=== PATIENT | female | born 1950 | race Caucasian/White ===

== ENCOUNTER → 2017-10-27 13:15 | Outpatient (CLI) | payer OTHER, SELFPAY | PROVIDERS: Family Provider Nurse Practitioner Family; PCP Nurse Practitioner Family; Visit Provider Family Medicine | DX: M85.88 Other specified disorders of bone density and structure, other site (principal) | CPT/HCPCS: 77080 ==

== ENCOUNTER → 2018-11-26 15:24 | Outpatient (CLI) | payer MEDICARE, OTHER, SELFPAY ==
[2018-11-26 16:35] LABS: Alanine Aminotransferase 33 IU/L (9-52); Albumin 4.3 g/dL (3.5-5.0); Albumin Globulin Ratio 1.8 (1.0-2.8); Alkaline Phosphatase 65 U/L (38-126); Aspartate Aminotransferase 25 IU/L (14-36); Bilirubin Total 0.5 mg/dL (0.2-1.3); Blood Urea Nitrogen 18 mg/dL (7-17); Carbon Dioxide 28 mmol/L (22-32); Chloride 100 mmol/L (98-107); Estimated Glomerular Filt Rate > 60.0 mL/min (>60); Globulin 2.4 g/dL (1.7-4.1); Glucose 87 mg/dL (80-110); HEMOLYSIS < 15 (0-50); Potassium 3.7 mmol/L (3.4-5.1); Sodium 138 mmol/L (137-145); Total Protein 6.7 g/dL (6.3-8.2)
[2018-11-26 16:51] LABS: Vitamin D 25 Hydroxy (D3) 39.5 ng/mL (30.0-100.0)
== END ==
PROVIDERS: Family Provider Internal Medicine; PCP Internal Medicine; Visit Provider Family Medicine
DX: M81.0 Age-related osteoporosis without current pathological fracture (principal)
CPT/HCPCS: 36415; 80053; 82306

== ENCOUNTER → 2019-02-17 14:13 | Outpatient (CLI) | payer MEDICARE, OTHER, SELFPAY | PROVIDERS: Family Provider Internal Medicine; PCP Internal Medicine; Visit Provider Family Medicine | DX: M85.88 Other specified disorders of bone density and structure, other site (principal); Z78.0 Asymptomatic menopausal state; Z82.62 Family history of osteoporosis; Z87.891 Personal history of nicotine dependence | CPT/HCPCS: 77080 ==

== ENCOUNTER → 2019-07-07 10:14 | Outpatient (CLI) | payer MEDICARE, OTHER, SELFPAY ==
[2019-07-07 11:17] LABS: BUN Creatinine Ratio 23.3 (6-22); Blood Urea Nitrogen 21 mg/dL (7-17); Calcium 9.6 mg/dL (8.4-10.2); Carbon Dioxide 27 mmol/L (22-32); Chloride 104 mmol/L (98-107); Estimated Glomerular Filt Rate > 60.0 mL/min (>60); Glucose 105 mg/dL (80-110); HEMOLYSIS < 15 (0-50); Potassium 3.9 mmol/L (3.4-5.1); Sodium 139 mmol/L (137-145)
[2019-07-07 11:34] LABS: Vitamin D 25 Hydroxy (D3) 57.9 ng/mL (30.0-100.0)
== END ==
PROVIDERS: Family Provider Internal Medicine; PCP Internal Medicine; Visit Provider Family Medicine
DX: M81.0 Age-related osteoporosis without current pathological fracture (principal)
CPT/HCPCS: 36415; 80048; 82306

== ENCOUNTER → 2019-12-02 09:57 | Outpatient (CLI) | payer MEDICARE, OTHER, SELFPAY ==
[2019-12-02 11:58] LABS: Cholesterol 131 mg/dL (140-199); HDL Cholesterol 45 mg/dL (40-60); LDL Cholesterol Calculated 65 mg/dL (<100); Triglycerides 105 mg/dL (35-150)
== END ==
PROVIDERS: Family Provider Internal Medicine; PCP Internal Medicine; Referring Provider Internal Medicine; Visit Provider Internal Medicine
DX: E78.5 Hyperlipidemia, unspecified (principal)
CPT/HCPCS: 36415; 80061

== ENCOUNTER → 2020-03-08 12:47 | Outpatient (CLI) | payer MEDICARE, OTHER, SELFPAY ==
--- NOTE | 2020-03-08 | DI.RAD.S_ITS ---
PROCEDURE: XR DEXA AXIAL SKELETON INDICATIONS: Age-related osteoporosis COMPARISON: [facility], CR, XR DEXA AXIAL SKELETON, 02/17/2019, 14:48. FINDINGS: This blank DEXA report has been sent in error by the PACS system. The correct and complete report will be forthcoming in 1-2 days. Thank you for your patience and understanding. Dictated by: Tisha Norris MD, PhD on 03/08/2020 at 16:20 Approved by: Tisha Norris MD, PhD on 03/08/2020 at 16:20
== END ==
PROVIDERS: Family Provider Internal Medicine; PCP Student in an Organized Health Care Education/Training Program; Referring Provider Student in an Organized Health Care Education/Training Program; Visit Provider Family Medicine
DX: M85.88 Other specified disorders of bone density and structure, other site (principal); Z78.0 Asymptomatic menopausal state; Z82.62 Family history of osteoporosis; Z87.891 Personal history of nicotine dependence
CPT/HCPCS: 77080

== ENCOUNTER → 2020-03-21 10:35 | Outpatient (CLI) | payer MEDICARE, OTHER, SELFPAY ==
[2020-03-21 12:46] LABS: Cholesterol 223 mg/dL (140-199); HDL Cholesterol 61 mg/dL (40-60); LDL Cholesterol Calculated 127 mg/dL (<100); Triglycerides 175 mg/dL (35-150)
[2020-03-21 14:00] LABS: Free T4, Direct Thyroxine 1.23 ng/dL (0.78-2.19)
== END ==
PROVIDERS: Family Provider Internal Medicine; PCP Student in an Organized Health Care Education/Training Program; Referring Provider Student in an Organized Health Care Education/Training Program; Visit Provider Student in an Organized Health Care Education/Training Program
DX: E03.9 Hypothyroidism, unspecified (principal); E78.2 Mixed hyperlipidemia
CPT/HCPCS: 36415; 80061; 84439; 84443

== ENCOUNTER → 2020-04-29 15:05 | Outpatient (CLI) | payer MEDICARE, OTHER, SELFPAY ==
[2020-04-29 16:44] LABS: COVID19 -Nasal RAPID Negative (Negative)
== END ==
PROVIDERS: Family Provider Internal Medicine; PCP Student in an Organized Health Care Education/Training Program; Visit Provider Physician Assistant
DX: Z11.59 Encounter for screening for other viral diseases (principal)
CPT/HCPCS: 87635

== ENCOUNTER 2020-05-02 07:01 | Day surgery (SDC) | payer MEDICARE, OTHER, SELFPAY ==
[2020-05-02 07:20] VITALS: BP 108/70; PULSE 62; RESP 14; TEMP 36.6; O2SAT 97; BMI 24.9
[2020-05-02] MEDS: PROPARACAINE 0.5% OPHTH SOL 2 DROPS EYE-OP (07:33)
[2020-05-02] MEDS: CATARACT EYE COMPOUND (10 DROPS/SYRINGE) 3 DROPS EYE-OP (07:40)
--- NOTE | 2020-05-02 08:29 | P.OP_ITS ---
Operative Date/Time/Diagnoses Pre-op diagnosis: Nuclear cataract right eye Procedure & Clinicians Procedure: Cataract Surgery Same procedure as scheduled: Yes Surgeon: Julien Ramirez Anesthesia Type: MAC +/- and Sedation Operative Notes Procedure in detail: Patient brought to the operating suite. Tetracaine drops placed in the right eye. Marking instrument was used to lyndsey the vertical and horizontal meridians. Patient was prepped and draped in sterile manner. Wire lid speculum was placed in the eye. Marking instrument was used to lyndsey the 90 degree meridian. Betadine drops were placed on the eye. This was irrigated. Lidocaine jelly was placed on the eye. A paracentesis port was created with a side-port blade. 0.1 mL 1% preservative free lidocaine was injected into the anterior chamber. The anterior chamber was deepened with viscoelastic. 2.6 mm keratome was used to create a temporal clear corneal incision. Cystotome and U trata forceps were used to create continuous tear capsulorrhexis. Balanced salt solution was used to hydro dissect the nucleus. The phacoemulsification handpiece was inserted and the nucleus was removed using the stop and chop technique. The irrigation aspiration handpiece was inserted and the remaining cortex was removed. Anterior chamber was deepened with viscoelastic. An Arriaza [id number] intraocular lens with a power of 23.0 was injected into the capsular bag. Irrigation aspiration handpiece was inserted and the remaining viscoelastic was removed. The lens was rotated to the 90 degree meridian. Incision was hydrated with balanced salt solution and found to be leak free with pressure with Weck-Karla sponges. 0.1 mL Vigamox injected anterior chamber. 0.3 mL Kenalog 10 mg was injected subconjunctivally. Lid speculum was removed. The patient left the operating room in excellent condition. Complications: none Post-operative Condition: stable Disposition: same day surgery
--- NOTE | 2020-05-02 08:29 | PM.PREOP ---
Pre-operative Note Interval Note History & Physical reviewed/Exam performed by Physician: Yes Changes to H&P: No
[2020-05-02] MEDS: TRIAMCINOLONE 50 MG/5 ML VIAL INJ (08:49)
[2020-05-02] MEDS: MOXIFLOXACIN INJ 5 MG/ML VIAL EYE-OP (08:49)
[2020-05-02] MEDS: CHONDROIDTIN/SOD HYALURONATE 1.05 ML SYRINGE INTRAOCULA (08:49)
[2020-05-02] MEDS: LIDOCAINE JELLY 2% 5 ML 1 APPLIC TOP (08:49)
[2020-05-02] MEDS: PHENYLEPHRINE/LIDOCAINE VIAL (OR) 0.2 ML EYE-OP (08:49)
[2020-05-02] MEDS: BALANCED SALT IRRIG SOLN NO.2 500 ML, EPINEPHrine 1 MG IRR (08:50)
[2020-05-02] MEDS: TETRACAINE 0.5% OPHTH DROPS 4 ML 2 DROPS EYE-OP (08:50)
[2020-05-02 09:06] VITALS: BP 109/68; PULSE 57; RESP 16; TEMP 36.1; O2SAT 100
== END 2020-05-02 09:11 | disposition home or self-care (01) ==
PROVIDERS: Family Provider Internal Medicine; PCP Student in an Organized Health Care Education/Training Program; Referring Provider Student in an Organized Health Care Education/Training Program; Visit Provider Ophthalmology
PROC: (CPT 66984; principal; 2020-05-02 08:45)
DX: H25.11 Age-related nuclear cataract, right eye (principal); I10 Essential (primary) hypertension
CPT/HCPCS: 66984; J0171; J2250; J3301; V2787

== ENCOUNTER → 2020-05-13 14:11 | Outpatient (CLI) | payer MEDICARE, OTHER, SELFPAY ==
[2020-05-13 16:41] LABS: COVID19 -Nasal RAPID Negative (Negative)
== END ==
PROVIDERS: Family Provider Internal Medicine; PCP Student in an Organized Health Care Education/Training Program; Visit Provider Nurse Practitioner
DX: Z11.59 Encounter for screening for other viral diseases (principal)
CPT/HCPCS: 87635

== ENCOUNTER 2020-05-16 07:03 | Day surgery (SDC) | payer MEDICARE, OTHER, SELFPAY ==
[2020-05-16] MEDS: PROPARACAINE 0.5% OPHTH SOL 2 DROPS EYE-OP (07:21)
[2020-05-16] MEDS: CATARACT EYE COMPOUND (10 DROPS/SYRINGE) 3 DROPS EYE-OP (07:24)
[2020-05-16 07:25] VITALS: BP 135/69; PULSE 61; RESP 14; TEMP 36.8; O2SAT 98
[2020-05-16 07:31] VITALS: BMI 24.9
--- NOTE | 2020-05-16 07:53 | PM.PREOP ---
Pre-operative Note Interval Note History & Physical reviewed/Exam performed by Physician: Yes Changes to H&P: No
--- NOTE | 2020-05-16 07:54 | P.OP_ITS ---
Operative Date/Time/Diagnoses Pre-op diagnosis: Nuclear Cataract Left eye Post-op diagnosis: same Procedure & Clinicians Same procedure as scheduled: Yes Surgeon: Julien Ramirez Anesthesia Type: MAC +/- and Sedation Operative Notes Procedure in detail: Patient brought to the operating suite. Tetracaine drops placed in the left eye. Marking instrument was used to lyndsey the vertical and horizontal meridians. Patient was prepped and draped in sterile manner. Wire lid speculum was placed in the eye. Marking instrument was used to lyndsey the 90 degree meridian. Betadine drops were placed on the eye. This was irrigated. Lidocaine jelly was placed on the eye. A paracentesis port was created with a side-port blade. 0.1 mL 1% preservative free lidocaine was injected into the anterior chamber. The anterior chamber was deepened with viscoelastic. 2.6 mm keratome was used to create a temporal clear corneal incision. Cystotome and Utrata forceps were used to create continuous tear capsulorrhexis. Balanced salt solution was used to hydro dissect the nucleus. The phacoemulsification handpiece was inserted and the nucleus was removed using the stop and chop ranjeet hnique. The irrigation aspiration handpiece was inserted and the remaining cortex was removed. Anterior chamber was deepened with viscoelastic. An Arriaza [id number] intraocular lens with a power of 22.5 was injected into the capsular bag. Irrigation aspiration handpiece was inserted and the remaining viscoelastic was removed. The lens was rotated to the 90 degree meridian. Incision was hydrated with balanced salt solution and found to be leak free with pressure with Weck- Karla sponges. 0.1 mL Vigamox injected anterior chamber. 0.3 mL Kenalog 10 mg was injected subconjunctivally. Lid speculum was removed. The patient left the operating room in excellent condition. Complications: none Post-operative Condition: stable Disposition: same day surgery
[2020-05-16] MEDS: MOXIFLOXACIN INJ 5 MG/ML VIAL EYE-OP (08:14)
[2020-05-16] MEDS: PHENYLEPHRINE/LIDOCAINE VIAL (OR) 0.2 ML EYE-OP (08:14)
[2020-05-16] MEDS: BALANCED SALT IRRIG SOLN NO.2 500 ML, EPINEPHrine 1 MG IRR (08:15)
[2020-05-16] MEDS: TRIAMCINOLONE 50 MG/5 ML VIAL INJ (08:15)
[2020-05-16] MEDS: TETRACAINE 0.5% OPHTH DROPS 4 ML 2 DROPS EYE-OP (08:15)
[2020-05-16] MEDS: LIDOCAINE JELLY 2% 5 ML 1 APPLIC TOP (08:15)
[2020-05-16] MEDS: CHONDROIDTIN/SOD HYALURONATE 1.05 ML SYRINGE INTRAOCULA (08:15)
[2020-05-16 08:28] VITALS: BP 138/65; PULSE 61; RESP 12; TEMP 36.2; O2SAT 99
== END 2020-05-16 08:40 | disposition home or self-care (01) ==
PROVIDERS: Family Provider Internal Medicine; PCP Student in an Organized Health Care Education/Training Program; Referring Provider Student in an Organized Health Care Education/Training Program; Visit Provider Ophthalmology
PROC: (CPT 66984; principal; 2020-05-16 08:15)
DX: H25.12 Age-related nuclear cataract, left eye (principal); I10 Essential (primary) hypertension
CPT/HCPCS: 66984; J0171; J2250; J3301; V2787

== ENCOUNTER → 2020-06-23 12:38 | Outpatient (CLI) | payer MEDICARE, OTHER, SELFPAY ==
[2020-06-23 14:26] LABS: BUN Creatinine Ratio 15.6 (6-22); Blood Urea Nitrogen 14 mg/dL (7-17); Estimated Glomerular Filt Rate > 60.0 mL/min (>60)
== END ==
PROVIDERS: PCP Student in an Organized Health Care Education/Training Program; Referring Provider Family Medicine; Visit Provider Family Medicine
DX: M81.0 Age-related osteoporosis without current pathological fracture (principal); Z51.81 Encounter for therapeutic drug level monitoring; Z79.83 Long term (current) use of bisphosphonates
CPT/HCPCS: 36415; 82565; 84520

== ENCOUNTER → 2020-07-10 08:31 | Outpatient (CLI) | payer MEDICARE, OTHER, SELFPAY ==
[2020-07-10 10:10] LABS: BUN Creatinine Ratio 19.5 (6-22); Blood Urea Nitrogen 15 mg/dL (7-17); Calcium 9.1 mg/dL (8.4-10.2); Carbon Dioxide 33 mmol/L (22-32); Chloride 102 mmol/L (98-107); Estimated Glomerular Filt Rate > 60.0 mL/min (>60); Glucose 108 mg/dL (80-110); HEMOLYSIS < 15 (0-50); Sodium 138 mmol/L (137-145)
[2020-07-10 11:00] LABS: Vitamin D 25 Hydroxy (D3) 58.4 ng/mL (30.0-100.0)
== END ==
PROVIDERS: PCP Student in an Organized Health Care Education/Training Program; Referring Provider Family Medicine; Visit Provider Family Medicine
DX: Z51.81 Encounter for therapeutic drug level monitoring (principal); M81.0 Age-related osteoporosis without current pathological fracture; Z79.83 Long term (current) use of bisphosphonates
CPT/HCPCS: 36415; 80048; 82306

== ENCOUNTER → 2020-10-02 14:06 | Outpatient (CLI) | payer MEDICARE, OTHER, SELFPAY ==
[2020-10-02 16:05] LABS: COVID19 -Nasal RAPID Negative (Negative)
== END ==
PROVIDERS: PCP Student in an Organized Health Care Education/Training Program; Visit Provider Student in an Organized Health Care Education/Training Program
DX: Z20.822 Contact with and (suspected) exposure to COVID-19 (principal)
CPT/HCPCS: 87635; C9803

== ENCOUNTER → 2020-10-03 10:49 | Outpatient (CLI) | payer MEDICARE, OTHER, SELFPAY ==
--- NOTE | 2020-10-04 14:49 | DI.NM.S_ITS ---
DATE OF SERVICE: October 03, 2020. PROCEDURE PERFORMED: Exercise treadmill stress and rest myocardial perfusion imaging with gating to assess ejection fraction and regional wall motion. ORDERING PROVIDER: Sarah Clemons MD INDICATIONS: The patient is a 69-year-old hypertensive, hyperlipidemic female with atypical chest discomfort. EXERCISE TREADMILL TESTING: The patient was able to exercise for 7 minutes 15 seconds on a standard Kirill protocol suggesting good exercise capacity with an LATONYA of -18%, achieving 10.1 METS. She had a normal heart rate and blood pressure response to exercise, achieving a maximum heart rate of 136 BPM (89% of her predicted maximum). She had no chest discomfort or other anginal symptoms. Her resting ECG shows sinus rhythm with normal ST segments, and there are no significant ST-segment shifts with exercise. She had rare isolated PVCs, but no complex ectopy. At 6 minutes 2 seconds of exercise at a heart rate of 128 BPM, 27.3 millicuries of technetium-99m Myoview was injected and she was imaged 15 minutes later using a gated SPECT acquisition protocol. She returned the following day and was reinjected with an additional 24.5 millicuries of technetium-99m Myoview and was imaged 30 minutes later, again using a gated SPECT acquisition protocol. FINDINGS: RAW DATA: There is good myocardial tracer uptake. Lung/heart ratio is normal at 0.30 with a normal TID ratio of 0.74. QUANTITATED GATED SPECT: Post-stress ejection fraction is estimated at 87% without any focal wall motion abnormalities and is likely an overestimate because of relatively small left ventricular volumes. Resting ejection fraction is estimated at 68% and appears unchanged from the stress images. Resting end-diastolic volume is normal at 77 mL. MYOCARDIAL PERFUSION IMAGING: Post-stress supine images show a fairly normal myocardial perfusion pattern with a subtle defect anteriorly that resolves on the prone images, consistent with breast attenuation artifact. The prone images show a homogeneous normal perfusion pattern. The resting images show an identical perfusion pattern without any areas of improvement. CONCLUSION: 1. Normal myocardial perfusion study. 2. Subtle, fixed anterior defect that resolves on prone imaging, consistent with breast attenuation artifact. There is no evidence for significant myocardial ischemia or previous myocardial infarction. 3. Normal left ventricular systolic function without any focal wall motion abnormalities. 4. Good exercise capacity without angina or ECG evidence of ischemia. Gretchen Block - RS/fn/cs doc#: [id number]/job#: [id number] dd: 10/04/2020 12:39:00 dt: 10/04/2020 13:52:00 DICTATING MD/COPIES TO: Andrei Robledo MD; Sarah Clemons MD COPIES MNE: ASHLEY;
== END ==
PROVIDERS: PCP Student in an Organized Health Care Education/Training Program; Referring Provider Student in an Organized Health Care Education/Training Program; Visit Provider Student in an Organized Health Care Education/Training Program
DX: R07.89 Other chest pain (principal); I10 Essential (primary) hypertension; E78.5 Hyperlipidemia, unspecified
CPT/HCPCS: 78452; 93016; 93017; 93018; A9502

== ENCOUNTER → 2021-06-01 14:24 | Outpatient (CLI) | payer MEDICARE, OTHER, SELFPAY | PROVIDERS: PCP Student in an Organized Health Care Education/Training Program; Referring Provider Family Medicine; Visit Provider Family Medicine | DX: Z78.0 Asymptomatic menopausal state (principal); Z79.83 Long term (current) use of bisphosphonates; M85.88 Other specified disorders of bone density and structure, other site; Z51.81 Encounter for therapeutic drug level monitoring; Z87.891 Personal history of nicotine dependence; Z82.62 Family history of osteoporosis | CPT/HCPCS: 77080 ==

== ENCOUNTER → 2021-10-29 15:01 | Outpatient (CLI) | payer MEDICARE, OTHER, SELFPAY ==
--- NOTE | 2021-10-29 | DI.MG.S_ITS ---
BILATERAL DIGITAL SCREENING MAMMOGRAM 3D/2D WITH CAD: 10/29/2021 CLINICAL: Routine screening. Family history of breast cancer. Comparison is made to exams dated: 05/15/2016 mammogram - [facility], 04/25/2015 mammogram, and 02/23/2014 mammogram - [facility]. The tissue of both breasts is heterogeneously dense. This may lower the sensitivity of mammography. Current study was also evaluated with a Computer Aided Detection (CAD) system. No significant masses, calcifications, or other findings are seen in either breast. There has been no significant interval change. IMPRESSION: NEGATIVE There is no mammographic evidence of malignancy. A 1 year screening mammogram is recommended. This exam was interpreted at Station ID: [id number]. NOTE: For mammograms, a report in lay terms will be sent to the patient. Approximately 15% of breast malignancies will not be visualized mammographically. In the management of a palpable breast mass, a negative mammogram must not discourage biopsy of a clinically suspicious lesion. Electronically Signed By: Albino saleh/lona:10/29/2021 16:15:28 letter sent: Normal Exam ACR BI-RADS Category 1: Negative 3341F
== END ==
PROVIDERS: PCP Student in an Organized Health Care Education/Training Program; Referring Provider Student in an Organized Health Care Education/Training Program; Visit Provider Student in an Organized Health Care Education/Training Program
DX: Z12.31 Encounter for screening mammogram for malignant neoplasm of breast (principal); Z80.3 Family history of malignant neoplasm of breast
CPT/HCPCS: 77063; 77067

== ENCOUNTER → 2022-06-19 11:52 | Outpatient (CLI) | payer MEDICARE, OTHER, SELFPAY | PROVIDERS: PCP Internal Medicine; Referring Provider Family Medicine; Visit Provider Family Medicine | DX: M81.0 Age-related osteoporosis without current pathological fracture (principal); Z51.81 Encounter for therapeutic drug level monitoring; Z79.83 Long term (current) use of bisphosphonates; Z78.0 Asymptomatic menopausal state; Z92.23 Personal history of estrogen therapy | CPT/HCPCS: 77080 ==

== ENCOUNTER → 2022-11-05 12:53 | Outpatient (CLI) | payer MEDICARE, OTHER, SELFPAY ==
--- NOTE | 2022-11-05 | DI.MG.S_ITS ---
BILATERAL DIGITAL SCREENING MAMMOGRAM 3D/2D WITH CAD: 11/05/2022 CLINICAL: Routine screening. Family history of breast cancer. Comparison is made to exams dated: 10/29/2021 mammogram, 05/15/2016 mammogram - [facility], and 04/25/2015 mammogram - [facility]. Both breasts are heterogeneously dense, which may obscure small masses (category c / 51-75% glandular tissue). Current study was also evaluated with a Computer Aided Detection (CAD) system. There are benign calcifications in both breasts. No significant masses, calcifications, or other findings are seen in either breast. There has been no significant interval change. IMPRESSION: BENIGN There is no mammographic evidence of malignancy. A 1 year screening mammogram is recommended. Based on the Tyrer Cuzick model (a risk assessment model) the patient's lifetime risk is 11.0% and her 10 year risk is 6.6%. According to the ACR, ACS, and NCCN guidelines, an annual breast MRI exam along with mammogram is recommended if the patient's lifetime risk is 20% or greater. This exam was interpreted at Station ID: [id number]. NOTE: For mammograms, a report in lay terms will be sent to the patient. Approximately 15% of breast malignancies will not be visualized mammographically. In the management of a palpable breast mass, a negative mammogram must not discourage biopsy of a clinically suspicious lesion. Electronically Signed By: Ilan musa/lona:11/05/2022 15:33:12 letter sent: Normal Exam ACR BI-RADS Category 2: Benign Finding(s) 3342F
== END ==
PROVIDERS: PCP Internal Medicine; Referring Provider Internal Medicine; Visit Provider Internal Medicine
DX: Z12.31 Encounter for screening mammogram for malignant neoplasm of breast (principal); Z80.3 Family history of malignant neoplasm of breast
CPT/HCPCS: 77063; 77067

== ENCOUNTER → 2023-08-27 | Outpatient (CLI) | payer MEDICARE, OTHER, SELFPAY ==
--- NOTE | 2023-08-27 10:47 | DI.RAD.S_ITS ---
Bone Density Report Name: CAROLA AMADO Age: 72 Sex: Female Ethnicity: White Date of : 1950 Indication: osteopenia; monitoring treatment; prior fracture; Referring Provider: TREY LAYTON Study: Bone densitometry was performed. Exam Date: August 27, 2023 Accession number: [id number] Bone Density: Region BMD T-score Z-score Classification AP Spine(L1-L4) 0.857 -1.7 0.4 Osteopenia Femoral Neck (Left) 0.744 -0.9 0.9 Normal Total Hip (Left) 0.933 -0.1 1.5 Normal Femoral Neck (Right) 0.713 -1.2 0.6 Osteopenia Total Hip (Right) 0.873 -0.6 1.0 Normal Total Hip Mean 0.903 -0.4 1.3 Normal World Health Organization criteria for BMD impression classify patients as: Normal (T-score at or above -1.0), Osteopenia (T-score between -1.0 and -2.5), or Osteoporosis (T-score at or below -2.5). 10-year Fracture Risk: FRAX not reported because: Prior hip or vertebral fracture Treated for osteoporosis Previous Exams: -- Region Exam Age BMD T-score BMD Change BMD Change Date g/cm2 vs Baseline vs Previous -- AP Spine (L1-L4) 08/27/2023 72 0.857 -1.7 0.098 (12.9%)# 0.013 (1.6%) 06/19/2022 71 0.843 -1.9 0.085 (11.1%)# -0.030 (-3.4%)# 06/01/2021 70 0.873 -1.6 0.114 (15.1%)* 0.060 (7.4%)* 03/08/2020 69 0.813 -2.1 0.054 (7.2%)* -0.047 (-5.5%)* 02/17/2019 68 0.860 -1.7 0.102 (13.4%)* 0.045 (5.5%)* 10/27/2017 66 0.816 -2.1 0.057 (7.5%)* 0.057 (7.5%)* 03/15/2016 65 0.759 -2.6 Total Hip(Left) 08/27/2023 72 0.933 -0.1 0.028 (3.1%)# -0.019 (-2.0%) 06/19/2022 71 0.952 0.1 0.047 (5.2%)# 0.031 (3.3%)# 06/01/2021 70 0.921 -0.2 0.017 (1.8%) -0.005 (-0.6%) 03/08/2020 69 0.927 -0.1 0.022 (2.4%) 0.005 (0.5%) 02/17/2019 68 0.922 -0.2 0.017 (1.9%) 0.010 (1.1%) 10/27/2017 66 0.912 -0.2 0.007 (0.8%) 0.007 (0.8%) 03/15/2016 65 0.905 -0.3 Total Hip(Right) 08/27/2023 72 0.873 -0.6 0.023 (2.7%)# -0.019 (-2.1%) 06/19/2022 71 0.892 -0.4 0.041 (4.9%)# -0.021 (-2.3%)# 06/01/2021 70 0.913 -0.2 0.063 (7.4%)* 0.025 (2.8%) 03/08/2020 69 0.888 -0.4 0.038 (4.4%)* -0.014 (-1.5%) 02/17/2019 68 0.902 -0.3 0.051 (6.0%)* 0.018 (2.0%) 10/27/2017 66 0.884 -0.5 0.033 (3.9%)* 0.033 (3.9%)* 03/15/2016 65 0.850 -0.8 -- *Denotes significance at 95% confidence level, LSC for AP Spine = 0.022 g/cm2, LSC for Total Hip = 0.027 g/cm2 # Denotes dissimilar scan types or analysis methods Impression: The patient has low bone mass, based on the Total Spine T-score. The patient has risk factors, including: previous fracture. No significant bone loss was observed. Discussion: PATIENT UNDER TREATMENT WITH NO SIGNIFICANT BMD LOSS SINCE LAST EXAM. In an untreated patient, BMD typically declines with age. A lack of decline or gain is usually a sign that treatment is efficacious and fracture risk is reduced. It is important to ask patients whether they are taking their medications and to encourage continued and appropriate compliance with their osteoporosis therapies to reduce fracture risk. It is also important to review their risk factors and encourage appropriate calcium and vitamin D intakes, exercise, fall prevention and other lifestyle measures. Follow-Up: Consider a repeat BMD and Vertebral Fracture Assessment (VFA) exam in 2 years or sooner if medically necessary, to reassess this patient's status. Reported by: FRANCHESKA ROSARIO MD on 08/27/2023 11:18:00 AM.
== END ==
LOC: RAD 10:46
PROVIDERS: PCP Internal Medicine; Referring Provider Family Medicine; Visit Provider Family Medicine
DX: M81.0 Age-related osteoporosis without current pathological fracture (principal); Z78.0 Asymptomatic menopausal state; Z79.83 Long term (current) use of bisphosphonates; Z51.81 Encounter for therapeutic drug level monitoring; Z87.311 Personal history of (healed) other pathological fracture
CPT/HCPCS: 77080

== ENCOUNTER → 2023-11-06 14:55 | Outpatient (CLI) | payer MEDICARE, OTHER, SELFPAY ==
--- NOTE | 2023-11-06 14:57 | DI.ECHO.S_ITS ---
+ + [place] : : [place] : : [facility] : : [facility] S : : [place] : : [place] : : [id number] : : Phone: [phone] Echocardiogram Report + + :Name: CAROLA AMADO Study Date: 11/06/2023 Height: 64 in : :[facility] ReadingLocation: Weight: 165 lb : : Gender: Female BSA: 1.8 m2 : :: 1950 Age: 72 yrs BP: 153/84 mmHg: :Reason For Study: PALPITATIONS : :Ordering Physician: GILSON, : :SHIRAZ Performed By: Gabriel Hudson : :Referring: SHIRAZ RIGGINS : + + Interpretation Summary 1) Normal left ventricular thickness, size, wall motion, and systolic function (EF 60-65%). 2) Normal right ventricular size and function. 3) No significant valvular abnormalities. 4) The right ventricular systolic pressure is estimated to be at least 37.6 mmHg based on an estimated right atrial pressure of 8 mm Hg. 5) No prior Echo available for comparison. Procedure: A two-dimensional transthoracic echocardiogram with color flow and Doppler was performed. The study quality was technically adequate. There is no prior echocardiogram noted for this patient. The patient was in sinus rhythm with heart rates between 61-84 bpm during the exam. Left Ventricle: The left ventricle is normal in size and wall thickness. The ejection fraction is estimated to be 60-65%. Left ventricular systolic function appears normal without focal wall motion abnormalities. Diastolic parameters suggest a relaxation abnormality of the left ventricle, consistent with probable normal filling pressures. Right Ventricle: The right ventricle is normal size. The right ventricular systolic function is normal. Atria: The left atrium is moderately dilated. The right atrium is borderline dilated. The interatrial septum grossly appears intact with no obvious evidence for an atrial septal defect. Mitral Valve: The mitral valve is normal in structure and function. There is no mitral valve stenosis. There has been no significant change since the previous study. Aortic Valve: The aortic valve is trileaflet. There is no aortic valve stenosis. No aortic regurgitation is present. Tricuspid Valve: The tricuspid valve is normal in structure and function. There is no tricuspid stenosis. There is trace tricuspid regurgitation. The right ventricular systolic pressure is estimated to be at least 37.6 mmHg based on an estimated right atrial pressure of 8 mm Hg. Pulmonic Valve: The pulmonic valve is not well visualized. There is no pulmonic valvular stenosis. There is no pulmonic valvular regurgitation. Great Vessels: The aortic root is normal size. The ascending aorta could not be visualized. The IVC is dilated (diameter is greater than 2.1 cm) yet it collapses greater than 50% with a sniff. This suggests a right atrial pressure of 8 mm Hg. Pericardium/ Pleura There is no pericardial effusion. There is no pleural effusion. MMode/2D Measurements & Calculations LVIDd: 4.9 cm LVOT diam: 2.1 cm LVIDs: 3.4 cm Ao root diam: 3.0 cm FS: 30.5 % asc Aorta Diam: 2.8 cm IVSd: 0.94 cm Ao Arch Diam (Prox Trans): 2.5 cm LVPWd: 0.89 cm LV peña. diameter/BSA (cm/m^2): 2.7 LV sys. diameter/BSA (cm/m^2): 1.9 LA A2 area: 20.7 cm2 RA long axis: 4.3 cm LA A4 area: 22.8 cm2 RA area: 14.0 cm2 LA length (vol): 5.7 cm RA vol: 39.0 ml LA vol: 70.7 ml RA : 21.6 ml/m2 LA vol index: 39.2 ml/m2 IVC diam: 2.3 cm RVD1 (basal): 3.3 cm RVD2 (mid): 2.4 cm TAPSE: 2.2 cm Doppler Measurements & Calculations Ao V2 max: 162.2 cm/sec LVOT Max Juan M: 101.4 cm/sec Ao V2 mean: 105.4 cm/sec LV V1 max P.1 mmHg Ao max P.5 mmHg LV V1 VTI: 25.0 cm Ao mean P.1 mmHg LIANNE(I,D): 2.4 cm2 Ao V2 VTI: 34.9 cm LIANNE(V,D): 2.1 cm2 sev ratio: 0.72 LIANNE indexed to BSA (cm^2/m^2): 1.3 MV E max juan m: 64.4 cm/sec TR max juan m: 271.8 cm/sec MV A max juan m: 92.0 cm/sec TR max P.6 mmHg MV E/A: 0.70 PA V2 max: 87.8 cm/sec Med Peak E' Juan M: 6.4 cm/sec PA V2 mean: 62.7 cm/sec E/E' med: 10.1 PA mean P.7 mmHg Lat Peak E' Juan M: 8.5 cm/sec PA pr(Accel): 36.2 mmHg E/E' lat: 7.6 E/e' average: 8.8 MV dec time: 0.20 sec SV(LVOT): 82.9 ml Reading Physician:03:57 PM
== END ==
PROVIDERS: PCP Internal Medicine; Referring Provider Internal Medicine; Visit Provider Internal Medicine
DX: R06.09 Other forms of dyspnea (principal); R00.2 Palpitations; R60.0 Localized edema
CPT/HCPCS: 93306

== ENCOUNTER → 2023-11-12 10:18 | Outpatient (CLI) | payer MEDICARE, OTHER, SELFPAY ==
--- NOTE | 2023-11-12 | DI.MG.S_ITS ---
BILATERAL DIGITAL SCREENING MAMMOGRAM 3D/2D WITH CAD: 11/12/2023 CLINICAL: Routine screening. Family history of breast cancer. Comparison is made to exams dated: 11/05/2022 mammogram, 10/29/2021 mammogram, and 05/15/2016 mammogram - [facility]. Both breasts are heterogeneously dense, which may obscure small masses (category c / 51-75% glandular tissue). Current study was also evaluated with a Computer Aided Detection (CAD) system. There is a focal asymmetry in the right breast at 3 o'clock middle depth. There is possible architectural distortion associated with the focal asymmetry. No other significant masses, calcifications, or other findings are seen in either breast. IMPRESSION: INCOMPLETE: NEEDS ADDITIONAL IMAGING EVALUATION The focal asymmetry in the right breast is indeterminate. Additional views with possible ultrasound are recommended. Based on the Tyrer Cuzick model (a risk assessment model) the patient's lifetime risk is 10.4% and her 10 year risk is 6.7%. According to the ACR, ACS, and NCCN guidelines, an annual breast MRI exam along with mammogram is recommended if the patient's lifetime risk is 20% or greater. This exam was interpreted at Station ID: [id number]. NOTE: For mammograms, a report in lay terms will be sent to the patient. Approximately 15% of breast malignancies will not be visualized mammographically. In the management of a palpable breast mass, a negative mammogram must not discourage biopsy of a clinically suspicious lesion. Electronically Signed By: Dorothy chaves/:11/12/2023 15:08:51 letter sent: Additional Imaging Needed ACR BI-RADS Category 0: Incomplete 3340F
== END ==
PROVIDERS: PCP Internal Medicine; Referring Provider Internal Medicine; Visit Provider Internal Medicine
DX: Z12.31 Encounter for screening mammogram for malignant neoplasm of breast (principal); Z80.3 Family history of malignant neoplasm of breast; R92.333 Mammographic heterogeneous density, bilateral breasts
CPT/HCPCS: 77063; 77067

== ENCOUNTER 2023-11-13 09:52 | Day surgery (SDC) | payer MEDICARE, OTHER, SELFPAY ==
[2023-11-13] MEDS: LACTATED RINGERS 1,000 ML 42 ML IV (11:35)
[2023-11-13 11:51] VITALS: BP 149/61; PULSE 66; RESP 16; TEMP 36.3; O2SAT 98
--- NOTE | 2023-11-13 12:08 | P.HP_ITS ---
History of Present Illness History of Present Illness Date Patient Seen: 11/13/23 Time Patient Seen: 12:08 Chief complaint: SDC Narrative: colon cancer screening, change in bowel habits, last scope 8 years ago. No family history for colon cancer PFSH Medical History Osteoarthritis Hypertension Social History household members: spouse Smoking Status: Former smoker alcohol intake: current Meds Home Medications and Allergies Home Medications Medication Instructions Recorded Confirmed Type melatonin 5 mg capsule See Rx Instructions .Route .COMPLEX 01/20/20 05/16/20 History trazodone 50 mg tablet 25 mg PO DAILY PRN Sleep 01/20/20 05/16/20 History zoledronic acid 5 mg/100 mL in 5 mg IV ONCE 01/20/20 05/16/20 History mannitol 5 %-water intravenous piggybck (Reclast) levothyroxine 88 mcg tablet 88 mcg PO DAILY 03/21/20 05/16/20 History amlodipine 5 mg tablet 5 mg PO DAILY #90 tabs 03/31/20 05/16/20 Rx celecoxib 200 mg capsule (Celebrex) 200 mg PO DAILY PRN pain 05/16/20 05/16/20 History sodium,potassium,mag sulfates 17.5 See Rx Instructions PO .COMPLEX 10/15/23 Rx gram-3.13 gram-1.6 gram oral soln #354 mL (Suprep Bowel Prep Kit) Allergies Allergy/AdvReac Type Severity Reaction Status Date / Time No Known Drug Allergies Allergy Verified 05/16/20 07:19 Review of Systems Review of Systems Narrative: Increased bloat and consistency in stool ROS: Yes All systems reviewed with the patient and are negative except as otherwise documented Exam Const General: cooperative, healthy appearing and comfortable Nutritional Appearance: average body habitus [facility] Head: normocephalic and atraumatic Eyes Conjunctivae: conjunctivae normal Sclera: sclerae normal Neck Neck: trachea midline and No JVD Resp Effort & Inspection: normal respiratory effort and able to speak in complete sentences Cardio Rate: regular rate Rhythm: regular rhythm GI Palpation: soft and No tender Skin General: atrophy and dry skin Neuro General: patient alert, patient awake and patient oriented x3 Cranial Nerves: tongue midline Psych Mental Status: mental status grossly normal Attitude: cooperative Judgment: judgment good Assessment & Plan Assessment & Plan narrative: colon cancer screening, recent change in bowel habits. Plan: colonoscopy with anesthesia Time Spent With Patient Time with patient: less than 30 minutes
--- NOTE | 2023-11-13 12:43 | PM.OP.COLON ---
Operative Date/Time/Diagnoses Date of procedure: 11/13/23 Time of procedure: 12:43 Pre-op diagnosis: change in bowel habit Post-op diagnosis: same Procedure & Clinicians Study performed: colonoscopy with anesthesia Same procedure as scheduled: Yes Indications: Change in bowel habits Surgeon: Shavonne Byers Procedure Notes Procedure in detail: Preop diagnosis: Change in bowel habits Postop diagnosis: Same Operative procedure: Colonoscopy with anesthesia Surgeon: Beckie Byers MD Findings: Excellent prep. Scattered small diverticuli within the sigmoid colon. No polyps identified Procedure: Patient placed in lateral position. Rectal exam performed showing normal tone no masses. Colonoscope was inserted into the rectum and advanced to ileocecal valve with minimal difficulty. Insufflation extraction of the scope and the above findings. Impression: No polyps identified. Small and moderate-sized diverticuli in the sigmoid colon Plan: Repeat colonoscopy in 10 years unless otherwise indicated by change in clinical condition Findings: divertiulosis Specimen(s): none sent Complications: none Post-procedure Recommendations: Colonoscopy in 10 years Follow up: as needed Disposition: PACU
[2023-11-13 13:13] VITALS: BP 145/72; PULSE 69; RESP 12; TEMP 36.3; O2SAT 96
[2023-11-13 13:15] VITALS: BP 147/74; PULSE 88; RESP 16; TEMP 36.2; O2SAT 98
[2023-11-13 13:19] VITALS: BP 129/65; PULSE 61; RESP 14; TEMP 36.3; O2SAT 99
[2023-11-13 13:24] VITALS: BP 136/60; PULSE 59; RESP 12; TEMP 36.4; O2SAT 99
[2023-11-13 13:40] VITALS: BP 144/74; PULSE 78; RESP 16; TEMP 36.9; O2SAT 98
== END 2023-11-13 13:42 | disposition home or self-care (01) ==
PROVIDERS: PCP Internal Medicine; Referring Provider Surgery; Visit Provider Surgery
PROC: 0DJD8ZZ Inspection of Lower Intestinal Tract, Via Natural or Artificial Opening Endoscopic (ICD-10-PCS; CPT 45378; principal; 2023-11-13 11:15)
DX: R19.4 Change in bowel habit (principal); K57.30 Diverticulosis of large intestine without perforation or abscess without bleeding
CPT/HCPCS: 45378; J2704

== ENCOUNTER → 2023-12-10 12:08 | Outpatient (CLI) | payer MEDICARE, OTHER, SELFPAY ==
--- NOTE | 2023-12-10 | DI.US.S_ITS ---
ULTRASOUND OF RIGHT BREAST: 12/10/2023 CLINICAL: Follow up from addtional views. Comparison is made to exams dated: 12/10/2023 mammogram, 11/12/2023 mammogram, 11/05/2022 mammogram, and 10/29/2021 mammogram - [facility]. Color flow and real-time ultrasound of the right breast were performed. Incidental dilated ducts are seen at 5:00, benign. IMPRESSION: BENIGN There is no sonographic evidence of malignancy. There is no abnormality seen in the right breast to correspond with the mammography finding in the LIQ. Return to annual mammogram screening schedule is recommended. This exam was interpreted at Station ID: [id number]. Electronically Signed By: Clinton Engel M.D. lc/:12/10/2023 13:09:30 letter sent: Normal Exam Ultrasound BI-RADS: 2 Benign
--- NOTE | 2023-12-10 | DI.MG.S_ITS ---
UNILATERAL RIGHT DIGITAL DIAGNOSTIC MAMMOGRAM 3D/2D WITH ADDITIONAL VIEWS: 12/10/2023 CLINICAL: Additional evaluation requested from prior study. Comparison is made to exams dated: 11/12/2023 mammogram, 11/05/2022 mammogram, 10/29/2021 mammogram, and 05/15/2016 mammogram - [facility]. The right breast is heterogeneously dense, which may obscure small masses (category c / 51-75% glandular tissue). There is a focal asymmetry in the right breast at 4 o'clock middle depth. This is not seen in additional views. No other significant masses or calcifications are seen in the breast. IMPRESSION: INCOMPLETE: NEEDS ADDITIONAL IMAGING EVALUATION The focal asymmetry in the right breast is indeterminate. An ultrasound is recommended. Based on the Tyrer Cuzick model (a risk assessment model) the patient's lifetime risk is 10.4% and her 10 year risk is 6.7%. According to the ACR, ACS, and NCCN guidelines, an annual breast MRI exam along with mammogram is recommended if the patient's lifetime risk is 20% or greater. This exam was interpreted at Station ID: [id number]. NOTE: For mammograms, a report in lay terms will be sent to the patient. Approximately 15% of breast malignancies will not be visualized mammographically. In the management of a palpable breast mass, a negative mammogram must not discourage biopsy of a clinically suspicious lesion. Electronically Signed By: Clinton cabrera/lona:12/10/2023 12:33:40 ACR BI-RADS Category 0: Incomplete [id number]
== END ==
PROVIDERS: PCP Internal Medicine; Referring Provider Internal Medicine; Visit Provider Internal Medicine
DX: R92.8 Other abnormal and inconclusive findings on diagnostic imaging of breast (principal); N64.89 Other specified disorders of breast; R92.331 Mammographic heterogeneous density, right breast
CPT/HCPCS: 76642; 77065; G0279

== ENCOUNTER → 2024-12-08 13:16 | Outpatient (CLI) | payer MEDICARE, OTHER, SELFPAY ==
--- NOTE | 2024-12-08 13:19 | DI.MG.S_ITS ---
MM screening mammo BI: 12/08/2024. BI-RADS: 1 CLINICAL: 73-year old female for bilateral screening mammogram. Tyrer-Cuzick lifetime risk of 11.6%. Current reported family history of breast cancer: mother. PRIOR EXAMS 12/10/2023, 11/12/2023, 11/05/2022, 10/29/2021, MAMMOGRAPHY TECHNIQUE: 2D and 3D (tomosynthesis) digital mammographic views obtained, with additional images as needed for full coverage. Current study was also evaluated with a Computer Aided Detection (CAD) system. DENSITY C. The breasts are heterogeneously dense, which may obscure small masses. MAMMOGRAPHY FINDINGS Bilateral: No suspicious mass, asymmetry, microcalcification, or other abnormality seen. IMPRESSION: * No evidence of malignancy. RECOMMENDATIONS Bilateral * Annual screening mammography. OVERALL ASSESSMENT CATEGORY BI-RADS-1: Negative. The [employer] recommends annual screening mammography beginning at age 40 for women with average risk of breast cancer. ELECTRONICALLY SIGNED: Albino Velez M.D. on 12/08/2024 at 04:41:59 PM PT Interpreting Station ID: [id number]
== END ==
PROVIDERS: PCP Internal Medicine; Referring Provider Registered Nurse; Visit Provider Registered Nurse
DX: Z12.31 Encounter for screening mammogram for malignant neoplasm of breast (principal); R92.333 Mammographic heterogeneous density, bilateral breasts; Z80.3 Family history of malignant neoplasm of breast
CPT/HCPCS: 77063; 77067